=== PATIENT | male | born 1965 | race Two or more races ===

== ENCOUNTER 2024-02-17 21:37 | Emergency (ER) | payer OTHER ==
[2024-02-17 21:45] VITALS: BP 121/70; PULSE 62; RESP 17; TEMP 97.8; BMI 20.3
== END 2024-02-17 22:55 | disposition home or self-care (01) ==
LOC: JERFT 21:37
DX: T23.272A Burn of second degree of left wrist, initial encounter (principal); X13.1XXA Other contact with steam and other hot vapors, initial encounter
CPT/HCPCS: 99283-25